=== PATIENT | male | born 1950 | race Caucasian/White ===

== ENCOUNTER → 2017-11-26 | Outpatient (CLI) | payer MEDICARE, OTHER ==
[~2017-11-26] MED LIST: ACET-1966 PO; CALC500T6 PO; CEPH250C37 PO; CHOL400C10 PO; CITA-156 PO; CLOP75TA43 PO; ESOM40CA42 PO; FLU45SYR17 IM; HYDR-385 PO; INSU100C14 SQ; LANI SUBQ; LOSA25TA50 PO; MULT-1335 PO; OXYGENHOME INH; PSYL3.4P2 PO; ROSU20TA23 PO; SITA1TAB17 PO; TADA5TAB7 PO; VITA-200 PO; VITA1CAP46 PO
[2017-11-26 11:01] LABS: PLATELET COUNT, AUTOMATED 234 K/uL (150-450)
== END ==
LOC: LAB 10:24
PROVIDERS: ATTEND Internal Medicine
DX: Z12.5 Encounter for screening for malignant neoplasm of prostate (principal); N40.0 Benign prostatic hyperplasia without lower urinary tract symptoms; Z79.899 Other long term (current) drug therapy; E78.00 Pure hypercholesterolemia, unspecified; I10 Essential (primary) hypertension; E11.65 Type 2 diabetes mellitus with hyperglycemia
CPT/HCPCS: 82465; 83718; 84153; 84443; 84478; 85025

== ENCOUNTER → 2017-11-26 | Outpatient (CLI) | payer MEDICARE, OTHER | LOC: LAB 10:29 | PROVIDERS: ATTEND Internal Medicine | DX: E11.9 Type 2 diabetes mellitus without complications (principal); Z79.4 Long term (current) use of insulin | CPT/HCPCS: 36415; 82040; 82247; 82310; 82374; 82435; 82565; 82947; 83036; 84075; 84132; 84155; 84295; 84450; 84460; 84520 ==

== ENCOUNTER → 2018-03-06 | Outpatient (CLI) | payer MEDICARE, OTHER | LOC: LAB 09:21 | PROVIDERS: ATTEND Internal Medicine | DX: E11.9 Type 2 diabetes mellitus without complications (principal); Z79.4 Long term (current) use of insulin | CPT/HCPCS: 36415; 83036 ==

== ENCOUNTER → 2018-06-09 | Outpatient (CLI) | payer MEDICARE, OTHER ==
[~2018-06-09] MED LIST changes: -LOSA25TA50 PO; +LOSA25TA52 PO
== END ==
LOC: LAB 10:15
PROVIDERS: ATTEND Internal Medicine
DX: E11.9 Type 2 diabetes mellitus without complications (principal); Z79.4 Long term (current) use of insulin; E78.5 Hyperlipidemia, unspecified; I10 Essential (primary) hypertension
CPT/HCPCS: 36415; 82040; 82247; 82310; 82374; 82435; 82565; 82947; 83036; 84075; 84132; 84155; 84295; 84450; 84460; 84520

== ENCOUNTER → 2018-08-05 | Outpatient (CLI) | payer MEDICARE, OTHER ==
[2018-08-05 11:05] LABS: LDL CHOLESTEROL 68 mg/dl
== END ==
LOC: LAB 10:17
PROVIDERS: ATTEND Internal Medicine
DX: M89.8X0 Other specified disorders of bone, multiple sites (principal); E11.65 Type 2 diabetes mellitus with hyperglycemia; E55.9 Vitamin D deficiency, unspecified
CPT/HCPCS: 36415; 82040; 82043; 82247; 82306; 82310; 82374; 82435; 82465; 82565; 82947; 83036; 83718; 84075; 84132; 84155; 84295; 84450; 84460; 84478; 84520

== ENCOUNTER → 2018-08-15 | Outpatient (CLI) | payer MEDICARE, OTHER ==
--- NOTE | 2018-08-15 15:40 | RADIOLOGY IMAGING REPORT ---
FACILITY: [facility] PATIENT NAME: Reza Jovel : 1950 MR: [id number] V: [id number] EXAM DATE: ORDERING PHYSICIAN: EN MORALES TECHNOLOGIST: Location: [facility] Patient: Reza Jovel : 1950 Visit/Account:[id number] Date of Sevice: 08/15/2018 KIDNEYS EXAMINATION: Renal ultrasound. History: Exam type: KIDNEYS History: Renal cysts, hypertension COMPARISON STUDIES: FINDINGS: Kidneys: Right kidney- 12.2 x 7.5 x 7.1 cm Left kidney- 12.8 x 6.9 x 5.1 cm Uniform and symmetric blood flow in each kidney by Doppler ultrasound. Hydronephrosis: none There is a 1.3 cm cyst lower pole the right kidney. There is mild hydronephrosis versus parapelvic cysts bilaterally.. On image 22 of 64 and image 23 of 64 there suggestion of a 2.3 cm in diameter cortical solid mass pro jecting from the lateral aspect of the mid to superior left kidney. This could represent a dromedary hump although the echogenicity appears different from the surrounding renal parenchyma and a mass le juhi should be excluded. Bladder: Prevoid findings 261 mL. Post void residual 116 mL. Bilateral ureteral jets are present. Prostate gland appears prominent Abdominal aorta and IVC: Obscured by bowel gas IMPRESSION: There is mild hydronephrosis versus parapelvic cysts bilaterally 1.3 cm lower pole right renal cyst Along the lateral aspect of the mid to superior left kidney there suggestion of a hypoechoic mass. T his could be further evaluated with CT or MR with and without contrast Report Dictated By: Vianca Murphy MD at 08/15/2018 3:29 PM Report E-Signed By: Vianca Murphy MD at 08/15/2018 3:35 PM WSN:[email or web address]
== END ==
LOC: US 03:25
PROVIDERS: ATTEND Internal Medicine
DX: N13.2 Hydronephrosis with renal and ureteral calculous obstruction (principal); I51.7 Cardiomegaly; N28.1 Cyst of kidney, acquired; I10 Essential (primary) hypertension
CPT/HCPCS: 76705; 93306

== ENCOUNTER → 2018-09-19 | Outpatient (CLI) | payer MEDICARE, OTHER ==
[~2018-09-19] MED LIST changes: -LOSA25TA52 PO; +LOSA25TA57 PO
== END ==
LOC: LAB 10:40
PROVIDERS: ATTEND Internal Medicine
DX: E11.9 Type 2 diabetes mellitus without complications (principal); Z79.4 Long term (current) use of insulin; E78.5 Hyperlipidemia, unspecified
CPT/HCPCS: 36415; 82043; 82465; 82570; 83036; 83718; 84478

== ENCOUNTER → 2018-12-19 | Outpatient (CLI) | payer MEDICARE, OTHER ==
[~2018-12-19] MED LIST changes: -ROSU20TA23 PO; +ROSU20TA24 PO
== END ==
LOC: LAB 13:28
PROVIDERS: ATTEND Internal Medicine
DX: E11.9 Type 2 diabetes mellitus without complications (principal); Z79.4 Long term (current) use of insulin
CPT/HCPCS: 36415; 82040; 82247; 82310; 82374; 82435; 82565; 82947; 83036; 84075; 84132; 84155; 84295; 84450; 84460; 84520

== ENCOUNTER → 2019-02-04 | Outpatient (CLI) | payer MEDICARE, OTHER ==
[2019-02-04 11:06] LABS: PLATELET COUNT, AUTOMATED 261 K/uL (150-450)
[2019-02-04 11:25] LABS: LDL CHOLESTEROL 46 mg/dl
== END ==
LOC: LAB 10:49
PROVIDERS: ATTEND Internal Medicine
DX: Z12.5 Encounter for screening for malignant neoplasm of prostate (principal); E78.00 Pure hypercholesterolemia, unspecified; I10 Essential (primary) hypertension; Z79.899 Other long term (current) drug therapy
CPT/HCPCS: 36415; 82040; 82247; 82310; 82374; 82435; 82465; 82565; 82947; 83718; 84075; 84132; 84153; 84155; 84295; 84443; 84450; 84460; 84478; 84520; 85025

== ENCOUNTER → 2019-02-17 | Outpatient (CLI) | payer MEDICARE, OTHER ==
[~2019-02-17] MED LIST changes: +IOPAMIDOL 76% 100 ML INFUS BTL 100 ML ONE
--- NOTE | 2019-02-17 10:52 | RADIOLOGY IMAGING REPORT ---
FACILITY: [facility] PATIENT NAME: Reza Jovel : 1950 MR: [id number] V: [id number] EXAM DATE: ORDERING PHYSICIAN: AMBERLY RIVERA TECHNOLOGIST: Location: [facility] Patient: Reza Jovel : 1950 Visit/Account:[id number] Date of Sevice: 02/17/2019 CT ABDOMEN PELVIS W & W/O CONTRAST HISTORY: Left renal mass TECHNIQUE: Axial images acquired through the abdomen/pelvis both with and without IV contrast.. Shonna nal and sagittal reformatting also performed.Dose Lowering Technique One of the following dose optimization techniques was utilized in the performance of this exam: Autom ated exposure control; adjustment of the mA and/or kV according to the patient's size; or use of an i terative reconstruction technique. Specific details can be referenced in the facility's radiology C T exam operational policy. CONTRAST: 75 mL Isovue-370 COMPARISON: Renal ultrasound August 15, 2018 FINDINGS: Visualized lung bases: Negative. Hepatobiliary: Cholelithiasis although no evidence of biliary ductal dilatation Spleen: Negative. Adrenals: Adrenal thickening bilaterally Pancreas: Negative. Kidneys ureters and bladder: There are parapelvic cysts in both kidneys. A solid mass is not appreci ated in the left kidney. In the posterior aspect of the lower pole the right kidney there is a 1.6 c m hypoattenuating mass which does not appear to represent a simple cyst. In the anterior lower pole of the right kidney there is a 1.7 cm hyperattenuating mass which does not appear to represent a simp le cyst. Neither of these lesions were demonstrated on the prior renal ultrasound. There is a mild irregularity and focal narrowing in the mid right ureter. There is a tiny Hypoattenuating filling de fect in the right lateral wall the bladder best appreciated on image 446 of series 13 and coronal gera ge 71 of series 11. Genitalia: Prostate is enlarged impinging upon the floor the bladder GI: The sigmoid colon is extremely redundant extending superiorly into the right upper quadrant. Th ere is mild diverticulosis of the left-sided the colon although no CT evidence of acute diverticuliti s . Hiatal hernia Vessels/spaces/nodes: There mild atherosclerotic calcifications of the abdominal aorta and branch ve ssels Bones/soft tissues: Mild spondylotic changes of the lumbar spine. Additional findings: None pertinent. IMPRESSION: Cholelithiasis although no evidence of bony ductal dilatation There are parapelvic cysts in both kidneys. A solid mass is not appreciated in the left kidney. The re are two hypoattenuating masses in the right kidney as described above which do not appear to repre sent simple cysts. Neither these lesions were demonstrated on the prior renal ultrasound therefore f urther evaluation with MR with and without contrast is recommended There is a mild irregularity and focal narrowing in the mid right ureter. This could be further eval uated with retrograde ureterogram There is a tiny hypoattenuating filling defect along the right lateral wall the bladder as described above. A mass lesion should be ruled out. Prostate is enlarged impinging upon the floor the bladder Mild diverticulosis of the left side of the colon. The sigmoid colon is extremely redundant. Hiatal hernia Report Dictated By: Vianca Murphy MD at 02/17/2019 10:22 AM Report E-Signed By: Vianca Murphy MD at 02/17/2019 10:47 AM WSN:[email or web address]
== END ==
LOC: CT 02-12 15:10
PROVIDERS: ATTEND Urology
DX: K80.20 Calculus of gallbladder without cholecystitis without obstruction (principal); N20.0 Calculus of kidney; N40.1 Benign prostatic hyperplasia with lower urinary tract symptoms; K57.30 Diverticulosis of large intestine without perforation or abscess without bleeding
CPT/HCPCS: 74178; Q9967

== ENCOUNTER 2019-02-23 12:04 | Emergency (ER) | payer MEDICARE, OTHER ==
[~2019-02-23 12:04] MED LIST changes: -GADOBENATE 529MG/1ML 15ML VIAL IVP ONE; -NS(*) 0.9% 50 ML BAG 50 ML ONE
[2019-02-23] MEDS ORDERED: ALBUTEROL 2.5 MG/3 ML NEB NEB ONE (12:10)
[2019-02-23] MEDS ORDERED: methylPREDNIS SUCC 125 MG/2ML IVP ONE (12:10)
[2019-02-23] MEDS ORDERED: FAMOTIDINE(*) 20MG/50ML PREMIX 50 ML IVPB ONE (12:10)
[2019-02-23] MEDS ORDERED: diphenhydrAMINE 50 MG/ML VIAL IVP ONE (12:10)
[2019-02-23 12:18] LABS: PLATELET COUNT, AUTOMATED 310 K/uL (150-450)
--- NOTE | 2019-02-23 12:28 | ER Report ---
History and Physical Time Seen By MD: 12:24 Hx. of Stated Complaint: MRI CONTRAST APPROX 10 MIN AGO - C/O DIZZINESS, FLUSHED, NAUSEA, SOB FOLLOWING HPI/ROS CHIEF COMPLAINT: Chest tightness, shortness of breath red rash immediately after obtaining contrast for TX HISTORY OF PRESENT ILLNESS: Patient is a 68-year-old male who is currently being worked up for renal mass by Dr. Mahmood. Patient was getting a contrast enhanced MRI today and was doing well this morning injuring the procedure until he received IV contrast he then became flushed, short of breath and nauseous. He was called as a rapid response. I responded patient was awake and alert with no acute respiratory distress but with complaint of chest tightness. EKG was obtained at that time as well as a Accu-Chek which was normal. Remove the patient to the emergency department for further evaluation. Prior to my full evaluation he did receive 25 mg of IV Benadryl, 60 mg of IV Solu-Medrol and 20 mg of IV Pepcid. Upon reevaluation he is feeling improved. We will be administering a albuterol nebulizer treatment he states that the chest tightness is resolved as well as the burning and itching. At this time. REVIEW OF SYSTEMS: Respiratory: Mild dyspnea Cardiovascular: No chest tightness no palpitations Gastrointestinal: Nausea which is improving Musculoskeletal: No back pain. Allergies: Coded Allergies: Gadolinium-Containing Contrast Medi (Verified Allergy, Severe, DIFFICULTY BREATHING, HIVES, 02/23/19) atorvastatin (Verified Allergy, Severe, 02/23/19) sildenafil (Verified Allergy, Severe, 02/23/19) Home Meds Reported Medications Oxygen (OXYGEN) 2 L Inha, 2.5 L INH NIGHTLY, L 01/12/15 Calcium Carbonate (CALCIUM) 500 Mg Tablet, 500 MG PO BID 01/12/15 Vitamin B Complex (VITAMIN B COMPLEX) 1 Each Capsule, 1 EACH PO DAILY, CAPSULE 01/12/15 Multivitamin With Minerals (MULTIPLE VITAMIN) 1 Each Tablet, 1 EACH PO DAILY 01/12/15 Cholecalciferol (Vitamin D3) (VITAMIN D) 400 Unit Capsule, 400 UNIT PO DAILY, CAPSULE 01/12/15 Vitamin E Acetate (VITAMIN E) 400 Unit Capsule, 400 UNIT PO DAILY, CAPSULE 01/12/15 Tadalafil (CIALIS) 5 Mg Tablet, 5 MG PO PRN 01/12/15 Citalopram Hydrobromide (CELEXA) 20 Mg Tablet, 20 MG PO QDAY, #5 TAB TAKE 1 TABLET BY MOUTH EVERY DAY 01/12/15 Insulin Aspart (NOVOLOG) 100 Unit/1 Ml Cartridge, UNIT SQ TID 01/12/15 Insulin Glargine (LANTUS) 100 Unit/Ml Soln, 38 UNIT SUBQ HS 01/12/15 Sitagliptin Phos/Metformin Hcl (JANUMET 50-1,000 MG TABLET) 1 Each Tablet, 1 EACH PO BID 01/12/15 Esomeprazole Magnesium (NEXIUM) 40 Mg Capsule.dr, 1 CAP PO BID TAKE ONE CAPSULE BY MOUTH EVERY DAY 01/12/15 Rosuvastatin Calcium (CRESTOR) 20 Mg Tablet, 20 MG PO HS 01/12/15 Losartan Potassium (LOSARTAN POTASSIUM) 25 Mg Tablet, 25 MG PO QDAY 01/12/15 Clopidogrel Bisulfate (PLAVIX) 75 Mg Tablet, 1 TAB PO QDAY TAKE ONE TABLET BY MOUTH EVERY DAY 01/12/15 Past Medical/Surgical History Currently being worked up for renal cell mass. Hx Smoking: No Smoking Status: Former Smoker Exposure to Second Hand Smoke?: No (NOT NOW BUT WAS IN PAST) Hx Substance Use Disorder: No Hx Alcohol Use: No Constitutional Vital Sign - Last 24 Hours 02/23/19 02/23/19 02/23/19 02/23/19 12:05 12:07 12:20 12:20 Temp 97.4 Pulse 74 76 Resp 22 14 B/P (MAP) 126/72 Pulse Ox 74 96 O2 Delivery Room Air Nasal Cannula O2 Flow Rate 5.0 4.0 02/23/19 02/23/19 02/23/19 02/23/19 12:30 12:30 12:49 13:00 Pulse 68 66 73 Resp 14 14 12 B/P (MAP) 121/71 (88) Pulse Ox 100 97 Physical Exam General Appearance: The patient is alert, has no immediate need for airway protection and no current signs of toxicity. Eyes: Pupils equal and round no injection. Respiratory: Chest is good for wheezing throughout the lung arce. Cardiac: regular rate and rhythm [ ] Gastrointestinal: Abdomen is soft and non tender, no masses, bowel sounds normal. Musculoskeletal: Neck: Neck is supple and non tender. Extremities have full range of motion and are non tender. Skin: Generalized hives Medical Decision Making Data Points Result Diagram: 02/23/19 1205 02/23/19 1205 Laboratory Hematology Test 02/23/19 12:05 Red Blood Count 5.17 M/uL (4.00-5.60) Mean Corpuscular Volume 86.8 fL (80.0-96.0) Mean Corpuscular Hemoglobin 28.4 pg (26.0-33.0) Mean Corpuscular Hemoglobin Concent 32.7 g/dL (32.0-36.0) Red Cell Distribution Width 15.9 % (11.5-14.5) Mean Platelet Volume 7.8 fL (7.2-11.1) Neutrophils (%) (Auto) 55.3 % (39.4-72.5) Lymphocytes (%) (Auto) 34.6 % (17.6-49.6) Monocytes (%) (Auto) 7.3 % (4.1-12.4) Eosinophils (%) (Auto) 2.4 % (0.4-6.7) Basophils (%) (Auto) 0.4 % (0.3-1.4) Nucleated RBC Relative Count (auto) 0.0 /100WBC Neutrophils # (Auto) 4.3 K/uL (2.0-7.4) Lymphocytes # (Auto) 2.7 K/uL (1.3-3.6) Monocytes # (Auto) 0.6 K/uL (0.3-1.0) Eosinophils # (Auto) 0.2 K/uL (0.0-0.5) Basophils # (Auto) 0.0 K/uL (0.0-0.1) Nucleated RBC Absolute Count (auto) 0.00 K/uL Sodium Level 141 mmol/L (137-145) Potassium Level 3.9 mmol/L (3.5-5.0) Chloride Level 104 mmol/L (98-107) Carbon Dioxide Level 24 mmol/L (22-30) Blood Urea Nitrogen 11 mg/dl (9-21) Creatinine 0.80 mg/dl (0.66-1.25) Glomerular Filtration Rate Calc > 60.0 Random Glucose 139 mg/dl (75-110) Calcium Level 9.1 mg/dl (8.4-10.2) Total Bilirubin 0.4 mg/dl (0.2-1.3) Aspartate Amino Transf (AST/SGOT) 21 U/L (0-35) Alanine Aminotransferase (ALT/SGPT) 36 U/L (0-56) Alkaline Phosphatase 50 U/L (0-126) Total Protein 7.1 g/dl (6.3-8.2) Albumin 4.4 g/dl (3.5-5.0) Chemistry Test 02/23/19 12:05 White Blood Count 7.7 k/uL (4.5-11.0) Red Blood Count 5.17 M/uL (4.00-5.60) Hemoglobin 14.7 g/dL (14.0-18.0) Hematocrit 44.9 % (42.0-52.0) Mean Corpuscular Volume 86.8 fL (80.0-96.0) Mean Corpuscular Hemoglobin 28.4 pg (26.0-33.0) Mean Corpuscular Hemoglobin Concent 32.7 g/dL (32.0-36.0) Red Cell Distribution Width 15.9 % (11.5-14.5) Platelet Count 310 K/uL (150-450) Mean Platelet Volume 7.8 fL (7.2-11.1) Neutrophils (%) (Auto) 55.3 % (39.4-72.5) Lymphocytes (%) (Auto) 34.6 % (17.6-49.6) Monocytes (%) (Auto) 7.3 % (4.1-12.4) Eosinophils (%) (Auto) 2.4 % (0.4-6.7) Basophils (%) (Auto) 0.4 % (0.3-1.4) Nucleated RBC Relative Count (auto) 0.0 /100WBC Neutrophils # (Auto) 4.3 K/uL (2.0-7.4) Lymphocytes # (Auto) 2.7 K/uL (1.3-3.6) Monocytes # (Auto) 0.6 K/uL (0.3-1.0) Eosinophils # (Auto) 0.2 K/uL (0.0-0.5) Basophils # (Auto) 0.0 K/uL (0.0-0.1) Nucleated RBC Absolute Count (auto) 0.00 K/uL Glomerular Filtration Rate Calc > 60.0 Calcium Level 9.1 mg/dl (8.4-10.2) Total Bilirubin 0.4 mg/dl (0.2-1.3) Aspartate Amino Transf (AST/SGOT) 21 U/L (0-35) Alanine Aminotransferase (ALT/SGPT) 36 U/L (0-56) Alkaline Phosphatase 50 U/L (0-126) Total Protein 7.1 g/dl (6.3-8.2) Albumin 4.4 g/dl (3.5-5.0) EKG/Imaging EKG Interpretation EKG shows sinus rhythm with a ventricular rate of [address] segment or T-wave abnormalities. Monitor Interpretation: Normal Sinus Rhythm ED Course/Re-evaluation Clinical Indication for ER IV: IV Access ED Course 02/23/2019 12:28:08 pm plan at this time will be to continue observation the emergency department. Patient already symptomatically feeling better after treat ment with Benadryl, Solu-Medrol and Pepcid. We'll reassess vital signs shortly. 02/23/2019 1:13:35 pm patient continues to do well breathing is cleared saturations have improved to 95% on room air. We will discharge the patient home. We have attended the chart include gadolinium contrast allergy. Decision to Disposition Date: Feb 23, 2019 Decision to Disposition Time: 13:14 Depart Departure Latest Vital Signs Vital Signs Date Time Temp Pulse Resp B/P (MAP) Pulse Ox O2 Delivery O2 Flow Rate FiO2 02/23/19 13:00 73 12 97 02/23/19 12:49 121/71 (88) 02/23/19 12:20 Nasal Cannula 4.0 02/23/19 12:05 97.4 Impression: Primary Impression: Allergic reaction to contrast material Condition: Improved Disposition: HOME OR SELF-CARE Referrals: EN MORALES MD (PCP) Patient Instructions: General Allergic Reaction (ED), Radiological Ionic Contrast Media (By injection) Problem Qualifiers Primary Impression: Allergic reaction to contrast material Encounter type: initial encounter Qualified Codes: T50.8X5A - Adverse effect of diagnostic agents, initial encounter ALDEN VEGA MD Feb 23, 2019 12:28
[2019-02-23 12:49] VITALS: BP 121/71
--- NOTE | 2019-02-23 13:26 | EKG ---
[place] [facility] [place] LUIGI HIGUERA : [id number] MR: [id number] V: [id number] EXAM DATE: ORDERING PHYSICIAN: ALDEN VEGA TECHNOLOGIST: LUIS Test Reason : DIZZY Blood Pressure : / mmHG Vent. Rate : 074 BPM Atrial Rate : 074 BPM P-R Int : 196 ms QRS Dur : 096 ms QT Int : 400 ms P-R-T Axes : 061 -12 041 degrees QTc Int : 444 ms Normal sinus rhythm Normal ECG When compared with ECG of 06-AUG-2017 10:42, No significant change was found Confirmed by MENDEL WEST ([id number]) on 02/23/2019 5:13:33 PM Referred By: MIGUEL Confirmed By:MENDEL WEST
--- NOTE | 2019-02-23 13:41 | RADIOLOGY IMAGING REPORT ---
FACILITY: [facility] [place] PATIENT NAME: Reza Jovel : 1950 MR: [id number] V: [id number] EXAM DATE: ORDERING PHYSICIAN: ALDEN VEGA TECHNOLOGIST: Location: [facility] Patient: Reza Jovel : 1950 Visit/Account:[id number] Date of Sevice: 02/23/2019 Exam type: CHEST PA LAT History: Trouble breathing Comparison: April 01, 2015 Findings: The lungs are free of acute effusions, infiltrates or edema. There is no evidence of a pneumothorax or pneumomediastinum. The cardiac silhouette is normal in size. There are spondylotic changes in th e thoracic spine. IMPRESSION: 1. No acute cardiopulmonary process is seen Report Dictated By: Vianca Murphy MD at 02/23/2019 1:34 PM Report E-Signed By: Vianca Murphy MD at 02/23/2019 1:36 PM WSN:[email or web address]
== END 2019-02-23 13:23 | disposition home or self-care (01) ==
LOC: ER 12:18
DX: T50.8X5A Adverse effect of diagnostic agents, initial encounter (principal)
CPT/HCPCS: 71046; 85025; 93005; 94640; 96365; 96375; 99284; J1200; J2930; J3490; J7613; 82040; 82247; 82310; 82374; 82435; 82565; 82947; 84075; 84132; 84155; 84295; 84450; 84460; 84520

== ENCOUNTER → 2019-02-23 | Outpatient (CLI) | payer MEDICARE, OTHER ==
[~2019-02-23] MED LIST changes: +GADOBENATE 529MG/1ML 15ML VIAL IVP ONE; -IOPAMIDOL 76% 100 ML INFUS BTL 100 ML ONE; +NS(*) 0.9% 50 ML BAG 50 ML ONE
--- NOTE | 2019-02-23 14:08 | RADIOLOGY IMAGING REPORT ---
FACILITY: [facility] PATIENT NAME: Reza Jovel : 1950 MR: [id number] V: [id number] EXAM DATE: ORDERING PHYSICIAN: AMBERLY RIVERA TECHNOLOGIST: Location: [facility] [place] Patient: Reza Jovel : 1950 Visit/Account:[id number] Date of Sevice: 02/23/2019 ABDOMEN W W/O CONTRAST HISTORY: Renal lesions TECHNIQUE: Multiplanar multisequence magnetic resonance imaging of the abdomen with and without intr avenous contrast. CONTRAST: 15 cc of MultiHance COMPARISON: CT scan 02/17/2019, ultrasound 08/15/2018 FINDINGS: Please note the patient had a reaction to contrast which include shortness of breath, dizziness and n ausea. Only one postcontrast sequence was obtained and the study is slightly limited in that respect. Patient was taken to the emergency room for treatment. Liver: Negative. Gallbladder and bile ducts: Gallstones are noted in gallbladder. No definitive choledocholithiasis. C ommon bile duct measures 3 mm the head of the pancreas. Spleen: Negative. Adrenal glands: Negative. Pancreas: Negative. Kidneys: There are some benign cysts in both kidneys some of which are parapelvic some of which are c ortical. Likely benign hemorrhagic or proteinaceous cyst anterior lower pole right kidney measures 1. 7 x 1.4 cm. No concerning renal masses are seen. Vessels: Normal Bowel/peritoneum/mesentery: Negative Lymph nodes: Negative Bones/soft tissues: Negative Visualized lung bases: Negative Visualized pelvis: Negative Other findings: None significant IMPRESSION: 1. Benign-appearing cortical and parapelvic cysts are noted in both kidneys. No concerning renal mass . 2. Please note the patient had a contrast reaction to MultiHance and only one postcontrast sequence w as obtained. Patient developed shortness of breath and was taken to the ER for treatment. In the futu re, I would suggest a different gadolinium agent if necessary. Report Dictated By: Adrian Barahona MD at 02/23/2019 1:48 PM Report E-Signed By: Adrian Barahona MD at 02/23/2019 2:04 PM WSN:[id number]
== END ==
LOC: MRI 00:45
PROVIDERS: ATTEND Urology
DX: N28.89 Other specified disorders of kidney and ureter (principal)
CPT/HCPCS: 74183; A9577; J7050

== ENCOUNTER 2019-04-02 00:09 | Observation (INO) | payer MEDICARE, OTHER ==
[2019-03-30 15:42] LABS: PLATELET COUNT, AUTOMATED 229 K/uL (150-450)
--- NOTE | 2019-04-01 18:49 | HISTORY AND PHYSICAL ---
DATE OF ADMISSION: April 02, 2019 CHIEF COMPLAINT Bladder tumor. HISTORY OF PRESENT ILLNESS Patient is a 69-year-old white male who was originally referred to Urology Clinic for questionable right renal mass noted on an ultrasound. He was originally seen at the end of November. At that time, his urinalysis was normal except for some glucose. His PSA was 2.49, and creatinine was 0.7. He is without gross hematuria, but did have some lower urinary tract symptoms consistent with BPH. A CT scan was performed, which showed no solitary mass of the right kidney, but was noted to have a 1.7 cm hypoechoic lesion not seen on the ultrasound and a questionable lesion on the right bladder wall. An MRI was performed for further evaluation of the kidney, which showed no concerning renal masses. Office cystoscopy was performed, which showed a 10 mm papillary lesion on the right lateral wall. He is now being brought to the operating room for planned transurethral resection of this lesion with possible mitomycin C instillation. PAST MEDICAL HISTORY 1. Hypercholesterolemia. 2. Hypertension. 3. Type 2 diabetes. 4. BPH. 5. Erectile dysfunction. 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 7. History of a TIA. 8. Chronic low back pain. PAST SURGICAL HISTORY 1. Right knee arthroscopy. 2. Right hand surgery. 3. Colonoscopy. 4. Bilateral vasectomy. ALLERGIES LIPITOR. CURRENT MEDICATIONS 1. Multivitamins. 2. Cialis. 3. Celexa. 4. Plavix. 5. Trulicity. 6. Nexium. 7. Insulin. 8. Cozaar. 9. Glucophage. 10. Flomax. 11. Crestor. SOCIAL HISTORY Patient is single, lives in [place], [place]. He denies tobacco use. REVIEW OF SYSTEMS Patient denies chest pain, shortness of breath, nausea, vomiting, fever, chills, gross hematuria, flank pain, liver disease, chronic headaches. PHYSICAL EXAMINATION GENERAL: Patient is a well-developed, well-nourished white male in no acute distress. HEENT: Normocephalic, atraumatic. CHEST: Clear to auscultation bilaterally. CARDIOVASCULAR: Regular rate and rhythm. ABDOMEN: Soft, nontender. No masses are palpated. GENITOURINARY: Deferred to the OR. EXTREMITIES: Without clubbing, cyanosis, or edema. NEUROLOGIC: Nonfocal. IMPRESSION A 69-year-old white male with a right lateral wall 1 cm papillary tumor. PLAN Will perform anesthetic cystoscopy with transurethral resection of tumor with possible mitomycin C instillation. MTDD
[~2019-04-02] VITALS: Ht 188 cm; Wt 64.9 kg
[2019-04-02] VITALS (12 sets, daily range): BP systolic 101–135; BP diastolic 66–90
[~2019-04-02 00:09] MED LIST changes: +DULA1.5P SC; +EMPA25TA PO; +METF-452 PO; +TAMS0.4C25 PO
[2019-04-02] MEDS ORDERED: LIDOCAINE/SOD BICARB 8.4% SYR ID ONE (06:45)
[2019-04-02] MEDS ORDERED: NORMOSOL R SOLN(*) 1000 ML BAG 1,000 ML IV PRN (06:45)
[2019-04-02] MEDS ORDERED: MIDAZOLAM 2 MG/2 ML VIAL IVP PRN (06:45)
[2019-04-02] MEDS ORDERED: ceFAZolin(*) 2GM/D5W 50ML 50 ML IVPB ONE (06:45)
[2019-04-02] MEDS ORDERED: FAMOTIDINE 20 MG TAB PO ONE (06:45)
[2019-04-02] MEDS ORDERED: fentaNYL CITR 100 MCG/2 ML AMP ONE (07:20)
[2019-04-02] MEDS ORDERED: PROPOFOL EMUL(*) 10MG/ML 20 ML 20 ML ONE (07:21)
[2019-04-02] MEDS ORDERED: LIDOCAINE 2% IV 100 MG/5ML SYR ONE (07:21)
[2019-04-02] MEDS ORDERED: HYDROCORTISONE 1% CR 28.35 GM TP ONE (07:39)
[2019-04-02] MEDS ORDERED: BELLADONNA ALK/OPIUM 60MG SUPP PR ONE (07:39)
[2019-04-02] MEDS ORDERED: ONDANSETRON 4 MG/2 ML VIAL ONE (08:02)
[2019-04-02] MEDS ORDERED: PHENAZOPYRIDINE 200 MG TAB PO PRN (08:55)
[2019-04-02] MEDS ORDERED: MAG HYD/AL HYD/SIMETH 30ML UDC PO PRN (08:55)
[2019-04-02] MEDS ORDERED: ZOLPIDEM TARTRATE 5 MG TAB PO PRN (08:55)
[2019-04-02] MEDS ORDERED: KETOROLAC 30 MG/ML VIAL IVP ONE (09:00)
[2019-04-02] MEDS ORDERED: APAP/HYDROCODONE 325/5 TAB PO PRN (09:05)
--- NOTE | 2019-04-02 10:11 | OPERATIVE REPORT 1 ---
EVENT DATE: April 02, 2019 SURGEON: Kvng Mahmood MD ANESTHESIOLOGIST: Stef Gardiner MD ANESTHESIA: General. PREOPERATIVE DIAGNOSIS Right lateral wall bladder tumor. POSTOPERATIVE DIAGNOSIS Right lateral wall papillary bladder tumor measuring 8 mm. PROCEDURE PERFORMED 1. Anesthetic cystoscopy. 2. Distal urethral dilation. 3. Bladder cold-cup excisional biopsy of 8 mm polypoid lesion on the right lateral wall and fulguration of biopsy site. ESTIMATED BLOOD LOSS 5 cc. IV FLUIDS Crystalloids. DRAINS None. SPECIMENS Cold-cup excisional biopsy sent for permanent analysis. COMPLICATIONS None. CONDITION The patient taken to the recovery room, awake and instable condition. STATEMENT OF MEDICAL NECESSITY The patient is a 68-year-old white male who was noted to have a filling defect on the right lateral wall by CT scan performed for a renal mass which turned out to be a negative finding. Office cystoscopy revealed a small papillary lesion on the right lateral wall. He is now being brought to the operating room for planned resection and/or biopsy of this lesion. DESCRIPTION OF PROCEDURE The patient was brought to the operating room. After general anesthetic was obtained, he was placed in the dorsal lithotomy position, prepped and draped in the usual sterile manner. The patient was noted to have a moderately tight fossa navicularis approximately 18-Northern Irish in size. He therefore underwent distal urethral dilation with the [place]ba sound starting at 18 and proceeding out to 26-Northern Irish. This was followed by anesthetic cystoscopy with the 21-Northern Irish rigid cystoscope sheath and both 30-degree and 70-degree lenses. The patient was noted to have a normal pendulous bulbar membranous and prostatic urethra. His bladder neck was mildly elevated. Upon entering his bladder, he had a 1 to 2+ trabeculated bladder. Both his ureteral orifices were slit-like in appearance effluxing clear urine. The previously noted lesion was again seen on the right lateral wall. It was approximately 8 mm in size and it had a smooth surface and spheroid in shape with a small stalk which did not appear classic for a transitional cell cancer. The remainder of the bladder appeared normal. The cold-cup biopsies were then introduced and the was removed intact at its base and sent for analysis. The biopsy site was then fulgurated with the Bugbee electrode following removal. The bladder was again inspected and there was no evidence of bleeding or other lesions. The patient's bladder was drained through the cystoscopic sheath. A B and O suppository was given per rectally. The patient was awakened in the operating room and taken to the recovery area in stable condition. The plan will be to allow the patient to recover for 23-hours secondary to social history with no one to be available for his care. We will let him go home tomorrow and we will plan to see him in the office in approximately 1 to 2 weeks to reveal his pathology and to discuss follow up plans. KALPANA
[2019-04-02] MEDS: DOCUSATE SODIUM 100 MG CAP PO SCH ×2 (10:22→20:45)
[2019-04-02] MEDS: NS(*) 0.9% 1000 ML BAG 1,000 ML IV PRN ×2 (10:23→22:56)
[2019-04-02] MEDS: KETOROLAC 15 MG/ML VIAL IVP SCH ×2 (15:06→20:46)
[2019-04-02] MEDS: PANTOPRAZOLE SOD 40 MG TABEC PO SCH (20:44)
[2019-04-02] MEDS: metFORMIN HCL 500 MG TAB PO SCH (20:44)
[2019-04-02] MEDS: CALCIUM OYSTER SHELL 500MG TAB PO SCH (20:45)
[2019-04-02] MEDS ORDERED: INS GLAR 100 UN/ML (ER ONLY) 100 UNIT/ML SUBQ SCH (21:00)
[2019-04-02] MEDS ORDERED: ROSUVASTATIN CALCIUM 10 MG TAB PO SCH (21:00)
[2019-04-03 03:19] VITALS: BP_SYST 111; BP_SYST 145; BP_DIAS 74; BP_DIAS 85
[2019-04-03] MEDS: KETOROLAC 15 MG/ML VIAL IVP SCH (03:32)
[2019-04-03 06:51] VITALS: BP 122/82
[2019-04-03] MEDS: DOCUSATE SODIUM 100 MG CAP PO SCH (08:38)
[2019-04-03] MEDS: PANTOPRAZOLE SOD 40 MG TABEC PO SCH (08:38)
[2019-04-03] MEDS: metFORMIN HCL 500 MG TAB PO SCH (08:39)
[2019-04-03] MEDS: CALCIUM OYSTER SHELL 500MG TAB PO SCH (08:39)
[2019-04-03] MEDS ORDERED: MULTIVITAMINS TAB PO SCH (09:00)
[2019-04-03] MEDS ORDERED: CLOPIDOGREL BISULFATE 75MG TAB PO SCH (09:00)
[2019-04-03] MEDS ORDERED: LOSARTAN POTASSIUM 50 MG TAB PO SCH (09:00)
[2019-04-03] MEDS ORDERED: CITALOPRAM HYDROBROM 20 MG TAB PO SCH (09:00)
[2019-04-03] MEDS ORDERED: FOLIC ACID/CYANOCOB/PYRIDOXINE PO SCH (09:00)
[2019-04-03] MEDS ORDERED: EMPAGLIFLOZIN 25 MG TAB PO SCH (09:00)
[2019-04-03] MEDS ORDERED: EMPAGLIFLOZIN 25 MG PO SCH (09:00)
[2019-04-03] MEDS ORDERED: CHOLECALCIFEROL 400 INTLU TAB 400 INTLU TAB PO SCH (09:00)
[2019-04-03] MEDS ORDERED: TAMSULOSIN HCL 0.4 MG CAP PO SCH (09:00)
[2019-04-03] MEDS ORDERED: INSULIN GLARGINE 100 U/ML 3 ML PEN SUBQ SCH (21:00)
== END 2019-04-03 09:22 | disposition home or self-care (01) ==
LOC: OR 00:09 → MED 10:26
PROVIDERS: ADMIT Urology; ATTEND Urology
DX: D49.4 Neoplasm of unspecified behavior of bladder (principal); E11.9 Type 2 diabetes mellitus without complications; I10 Essential (primary) hypertension; N52.9 Male erectile dysfunction, unspecified; E78.00 Pure hypercholesterolemia, unspecified; N40.0 Benign prostatic hyperplasia without lower urinary tract symptoms
CPT/HCPCS: 36415; 36416; 52234; 81001; 82948; 85025; 87088; 88305; 96372; A9270; G0378; J1815; J1885; J2001; J2405; J2704; J3010; J7030; 82040; 82247; 82310; 82374; 82435; 82565; 82947; 84075; 84132; 84155; 84295; 84450; 84460; 84520; J0690